=== PATIENT | female | born 1990 | race Caucasian/White ===

== ENCOUNTER 2016-12-07 04:15 | Emergency (ER) | payer MEDICAID, OTHER ==
[~2016-12-07] VITALS: Ht 165.1 cm; Wt 53.0 kg
[~2016-12-07 04:15] MED LIST: PROT40TA PO; ZOFR4TAB3 SL
[2016-12-07 04:18] VITALS: BP 132/91; PULSE 91; RESP 16; TEMP 97.3; O2SAT 100
[2016-12-07 05:24] VITALS: BP 131/86; PULSE 79; RESP 18; O2SAT 96
--- NOTE | 2016-12-07 05:49 | PD ---
HPI Chief Complaint: GI Complaint Time Seen by Provider: 05:49 Travel History International Travel<30 days: No Contact w/Intl Traveler<30days: No Traveled to known affect area: No History of Present Illness HPI 26-year-old female came to the emergency room with history of vomiting, abdominal pain for past 2 days. Patient says that she has vomited multiple times. She had something very similar few months ago and was admitted in [place]. CAT scan and extensive workup was done and everything came back negative. Patient has history of "abdominal nerves" and her anything that makes her anxious makes her nauseous as well. She looks anxious and in moderate distress. REPLACED BY [facility] Past Medical History Narrative Medical List of her past medical history is reviewed from the nursing note. Autoimmune Disease: No Cancer: No Cardiovascular Problems: No Chemotherapy: No Diminished Hearing: No Endocrine: No Gastrointestinal Disorders: Yes GERD: Yes Genitourinary: No Immune Disorder: No Musculoskeletal: No Neurologic: No Psychiatric: No Reproductive: No Respiratory: No Radiation Therapy: No Ulcer: Yes Tetanus Vaccination: > 5 Years Influenza Vaccination: No ?: Not LMP: 11/08/16 Past Surgical History Other Surgery: Yes (WISDOM TEETH REMOVED) Social History Alcohol Use: No Tobacco Use: Yes (1 PPD) Substance Use: Yes (MARIJUANA-HEAVILY) Allergies-Medications (Allergen,Severity, Reaction): Coded Allergies: No Known Allergies (Verified , 12/07/16) Comments No known drug allergies. Reported Meds & Prescriptions Reported Meds & Active Scripts Active Protonix (Pantoprazole Sodium) 40 Mg Tab 40 Mg PO DAILY Zofran Odt (Ondansetron Odt) 4 Mg Tab 4 Mg SL Q6HR PRN Narrative Medication List of her home medications reviewed from the nursing note. Review of Systems Except as stated in HPI: all other systems reviewed are Neg Physical Exam Narrative GENERAL: Awake, alert, anxious, moderate distress SKIN: Warm and dry. HEAD: Atraumatic. Normocephalic. EYES: Pupils equal and round. No scleral icterus. No injection or drainage. ENT: No nasal bleeding or discharge. Dry mucous membrane NECK: Trachea midline. No JVD. CARDIOVASCULAR: Regular rate and rhythm. No murmur appreciated. RESPIRATORY: No accessory muscle use. Clear to auscultation. Breath sounds equal bilaterally. GASTROINTESTINAL: Abdomen soft, generalized tenderness on deep palpation, nondistended. Hepatic and splenic margins not palpable. MUSCULOSKELETAL: No obvious deformities. No clubbing. No cyanosis. No edema. NEUROLOGICAL: Awake and alert. No obvious cranial nerve deficits. Motor grossly within normal limits. Normal speech. PSYCHIATRIC: Appropriate mood and affect; insight and judgment normal. Data Data Last Documented VS Vital Signs Date Time Temp Pulse Resp B/P Pulse Ox O2 Delivery O2 Flow Rate FiO2 12/07/16 07:43 99.3 118 17 123/81 98 Room Air Orders Complete Blood Count With Diff (12/07/16 05:52) Comprehensive Metabolic Panel (12/07/16 05:52) Lipase (12/07/16 05:52) Urinalysis - C+S If Indicated (12/07/16 05:52) Iv Access Insert/Monitor (12/07/16 05:52) Ecg Monitoring (12/07/16 05:52) Oximetry (12/07/16 05:52) Ondansetron Inj (Zofran Inj) (12/07/16 06:00) Pantoprazole Inj (Protonix Inj) (12/07/16 06:00) Sodium Chlor 0.9% 1000 Ml Inj (Ns 1000 M (12/07/16 05:52) Sodium Chloride 0.9% Flush (Ns Flush) (12/07/16 06:00) Sodium Chlor 0.9% 1000 Ml Inj (Ns 1000 M (12/07/16 07:30) Sodium Chlor 0.9% 1000 Ml Inj (Ns 1000 M (12/07/16 07:45) Urine Culture (12/07/16 07:55) Labs Laboratory Tests Test 12/07/16 12/07/16 06:10 07:55 White Blood Count 15.2 TH/MM3 Red Blood Count 4.65 MIL/MM3 Hemoglobin 13.9 GM/DL Hematocrit 40.8 % Mean Corpuscular Volume 87.9 FL Mean Corpuscular Hemoglobin 29.8 PG Mean Corpuscular Hemoglobin 34.0 % Concent Red Cell Distribution Width 13.7 % Platelet Count 217 TH/MM3 Mean Platelet Volume 12.0 FL Neutrophils (%) (Auto) 75.6 % Lymphocytes (%) (Auto) 16.7 % Monocytes (%) (Auto) 7.0 % Eosinophils (%) (Auto) 0.1 % Basophils (%) (Auto) 0.6 % Neutrophils # (Auto) 11.5 TH/MM3 Lymphocytes # (Auto) 2.5 TH/MM3 Monocytes # (Auto) 1.1 TH/MM3 Eosinophils # (Auto) 0.0 TH/MM3 Basophils # (Auto) 0.1 TH/MM3 CBC Comment DIFF FINAL Differential Comment Sodium Level 136 MEQ/L Potassium Level 4.1 MEQ/L Chloride Level 104 MEQ/L Carbon Dioxide Level 23.8 MEQ/L Anion Gap 8 MEQ/L Blood Urea Nitrogen 11 MG/DL Creatinine 0.91 MG/DL Estimat Glomerular Filtration 75 ML/MIN Rate Random Glucose 90 MG/DL Calcium Level 8.9 MG/DL Total Bilirubin 1.2 MG/DL Aspartate Amino Transf 29 U/L (AST/SGOT) Alanine Aminotransferase 22 U/L (ALT/SGPT) Alkaline Phosphatase 54 U/L Total Protein 7.3 GM/DL Albumin 4.0 GM/DL Lipase 108 U/L Urine Color YELLOW Urine Turbidity HAZY Urine pH 6.5 Urine Specific [place] 1.024 Urine Protein TRACE mg/dL Urine Glucose (UA) NEG mg/dL Urine Ketones 40 mg/dL Urine Occult Blood NEG Urine Nitrite NEG Urine Bilirubin NEG Urine Urobilinogen 2.0 MG/DL Urine Leukocyte Esterase NEG Urine RBC 1 /hpf Urine WBC 1 /hpf Urine Squamous Epithelial 10 /hpf Cells Urine Bacteria MOD /hpf Urine Mucus FEW /lpf Microscopic Urinalysis Comment CULTURE INDICATED MDM Medical Decision Making Medical Screen Exam Complete: Yes Emergency Medical Condition: Yes Medical Record Reviewed: Yes Differential Diagnosis Acute appendicitis, gastroenteritis, acute gastritis, abdominal pain NOS Narrative Course 7:24 AM blood test results of back and patient has leukocytosis. Chemistry looks to be within normal limit. She was given IV fluid bolus, Zofran and IV Protonix. Patient says she feels much better. She has not vomited anymore. I palpated her abdomen and she said her tenderness is better. Patient will get a second liter of IV fluid bolus. She still has to give a urine sample for urinalysis. Patient will be discharged home after that. Procedures EKG Prior to Arrival: No Diagnosis Primary Impression: Acute gastritis Qualified Code: K29.00 - Acute gastritis without hemorrhage, unspecified gastritis type Additional Impressions: Abdominal pain Qualified Code: R10.84 - Generalized abdominal pain Dehydration Referrals: Primary Care Physician 3 days Additional Instructions: Please return to the ER if the condition worsens or any other new concerns. Otherwise follow-up with your primary care in couple days. Take the medications as per the prescription direction. Med/Other Pt SpecificInfo: Prescription(s) given Scripts Pantoprazole (Protonix)40 Mg Tab40 Mg PO DAILY #30 TAB Ref 0 Prov:Kemi Coelho MD 12/07/16 Ondansetron Odt (Zofran Odt)4 Mg Tab4 Mg SL Q6HR PRN (Nausea/Vomiting) #30 TAB Ref 0 Prov:Kemi Coelho MD 12/07/16 Disposition: DISCHARGE HOME Condition: Stable Kemi Coelho MD Dec 07, 2016 05:49
[2016-12-07] MEDS ORDERED: SODIUM CHLOR 0.9% 1000 ML INJ 1,000 ML IV SCH (05:52)
[2016-12-07] MEDS ORDERED: ONDANSETRON HCL 4 MG/2 ML VIAL IVP ONE (06:00)
[2016-12-07] MEDS ORDERED: PANTOPRAZOLE SODIUM 40 MG VIAL IVP ONE (06:00)
[2016-12-07] MEDS ORDERED: SODIUM CHLORIDE 0.9% FLUSH 5 ML FLUSH IVF PRN (06:00)
[2016-12-07 06:14] VITALS: O2SAT 99
[2016-12-07 06:30] LABS: AUTOMATED NEUTROPHIL # 11.5 TH/MM3 (1.8-7.7); BASOPHIL # 0.1 TH/MM3 (0-0.2); BASOPHIL % 0.6 % (0.0-2.0); EOSINOPHIL % 0.1 % (0.0-4.0); HEMATOCRIT 40.8 % (35.0-46.0); HEMO FLAGS DIFF FINAL; LYMPH % 16.7 % (9.0-44.0); LYMPHOCYTE # 2.5 TH/MM3 (1.0-4.8); MEAN CELL VOLUME 87.9 FL (80.0-100.0); MEAN CORPUSCULAR HEMOGLOBIN 29.8 PG (27.0-34.0); NEUT % 75.6 % (16.0-70.0); PLATELET COUNT 217 TH/MM3 (150-450); RED BLOOD COUNT 4.65 MIL/MM3 (4.00-5.30); RED CELL DISTRIBUTION WIDTH 13.7 % (11.6-17.2); WHITE BLOOD COUNT 15.2 TH/MM3 (4.0-11.0)
[2016-12-07 06:52] LABS: ALKALINE PHOSPHATASE 54 U/L (45-117); TOTAL BILIRUBIN ADULT 1.2 MG/DL (0.2-1.0)
[2016-12-07 06:54] LABS: ALT (GPT) 22 U/L (10-53); ANION GAP 8 MEQ/L (5-15); AST (GOT) 29 U/L (15-37); BICARBONATE 23.8 MEQ/L (21.0-32.0); BLOOD UREA NITROGEN 11 MG/DL (7-18); CHLORIDE 104 MEQ/L (98-107); GLOMERULAR FILTRATION RATE 75 ML/MIN (>89); POTASSIUM 4.1 MEQ/L (3.5-5.1); SODIUM (NA) 136 MEQ/L (136-145)
[2016-12-07] MEDS ORDERED: PROT40TA PO (07:28)
[2016-12-07] MEDS ORDERED: ZOFR4TAB3 SL (07:28)
[2016-12-07] MEDS ORDERED: SODIUM CHLOR 0.9% 1000 ML INJ 1,000 ML IV ONE ×2 (07:30→07:45)
[2016-12-07 07:43] VITALS: BP 123/81; PULSE 118; RESP 17; TEMP 99.3; O2SAT 98
[2016-12-07 08:24] LABS: BACTERIA, URINE MOD /hpf; BLOOD, URINE NEG (NEG); COMMENT (UR) CULTURE INDICATED; CULTURE IF INDICATED CULTURE INDICATED; GLUCOSE,URINE NEG (NEG); KETONE, URINE 40 mg/dL (NEG); MUCUS URINE FEW /lpf (OCC); NITRITE,URINE NEG (NEG); PH, URINE 6.5 (5.0-8.5); SQUAMOUS EPITHELIAL CELL URINE 10 /hpf (0-5); URINE COLOR YELLOW (YELLW/STRAW)
== END 2016-12-07 09:23 | disposition home or self-care (01) ==
LOC: NEPE 04:15
DX: K29.00 Acute gastritis without bleeding (principal); R10.84 Generalized abdominal pain; E86.0 Dehydration; F17.210 Nicotine dependence, cigarettes, uncomplicated
CPT/HCPCS: 80053; 81001; 83690; 85025; 87086; 96361; 96374; 96375; 99284; C9113; J2405; J7030

== ENCOUNTER 2016-12-11 16:07 | Emergency (ER) | payer MEDICAID, OTHER ==
[~2016-12-11] VITALS: Ht 165.1 cm; Wt 53.9 kg
[2016-12-11 16:19] VITALS: BP 145/93; PULSE 91; RESP 16; TEMP 97.6; O2SAT 100
[2016-12-11] MEDS ORDERED: ZOLO50TA PO (16:42)
[2016-12-11] MEDS ORDERED: SODIUM CHLOR 0.9% 1000 ML INJ 1,000 ML IV SCH (16:58)
[2016-12-11] MEDS ORDERED: KETOROLAC TROMETHAMINE 30 MG/ML (IVP) VIAL IV PUSH ONE (17:00)
[2016-12-11] MEDS ORDERED: ONDANSETRON HCL 4 MG/2 ML VIAL IVP ONE (17:00)
[2016-12-11] MEDS ORDERED: SODIUM CHLORIDE 0.9% FLUSH 5 ML FLUSH IVF PRN (17:00)
[2016-12-11] MEDS ORDERED: SODIUM CHLOR 0.9% 1000 ML INJ 1,000 ML IV ONE (17:00)
[2016-12-11 17:22] LABS: AUTOMATED NEUTROPHIL # 13.7 TH/MM3 (1.8-7.7); BASOPHIL # 0.2 TH/MM3 (0-0.2); BASOPHIL % 1.2 % (0.0-2.0); EOSINOPHIL # 0.2 TH/MM3 (0-0.4); EOSINOPHIL % 1.3 % (0.0-4.0); HEMATOCRIT 44.8 % (35.0-46.0); HEMO FLAGS DIFF FINAL; LYMPH % 8.5 % (9.0-44.0); LYMPHOCYTE # 1.3 TH/MM3 (1.0-4.8); MEAN CELL VOLUME 89.3 FL (80.0-100.0); MEAN CORPUSCULAR HEMOGLOBIN 29.2 PG (27.0-34.0); MEAN CORPUSCULAR HGB CONC 32.7 % (32.0-36.0); MONO % 2.9 % (0.0-8.0); NEUT % 86.1 % (16.0-70.0); PLATELET COUNT 276 TH/MM3 (150-450); RED BLOOD COUNT 5.02 MIL/MM3 (4.00-5.30); RED CELL DISTRIBUTION WIDTH 13.5 % (11.6-17.2); WHITE BLOOD COUNT 15.9 TH/MM3 (4.0-11.0)
[2016-12-11 17:25] VITALS: BP 138/84; PULSE 64; RESP 18; O2SAT 100
[2016-12-11 17:31] LABS: CHLORIDE 109 MEQ/L (98-107); POTASSIUM 3.7 MEQ/L (3.5-5.1); SODIUM (NA) 142 MEQ/L (136-145)
[2016-12-11 17:35] LABS: ANION GAP 11 MEQ/L (5-15); BICARBONATE 21.7 MEQ/L (21.0-32.0); BLOOD UREA NITROGEN 7 MG/DL (7-18)
[2016-12-11 17:38] LABS: ALT (GPT) 17 U/L (10-53); AST (GOT) 8 U/L (15-37); GLOMERULAR FILTRATION RATE 73 ML/MIN (>89)
[2016-12-11 17:39] LABS: TOTAL BILIRUBIN ADULT 0.9 MG/DL (0.2-1.0)
[2016-12-11 17:41] LABS: ALKALINE PHOSPHATASE 60 U/L (45-117)
[2016-12-11] MEDS ORDERED: IOHEXOL 350 MG/ML 10 ML VIAL (for RAD DIAG) IV ONE (18:12)
[2016-12-11 18:25] VITALS: RESP 16
--- NOTE | 2016-12-11 18:33 | RADHPO ---
EXAM DATE/TIME: 12/11/2016 18:06 [place] COMPARISON: CT ABDOMEN W/O CONTRAST, August 19, 2016, 10:58. INDICATIONS : Abdominal pain and vomiting for five days. IV CONTRAST: 75 cc Omnipaque 350 (iohexol) IV ORAL CONTRAST: No oral contrast ingested. RADIATION DOSE: 5.32 CTDIvol (mGy) MEDICAL HISTORY : Gastroesophageal reflux disease. SURGICAL HISTORY : None. ENCOUNTER: Initial ACUITY: 4 - 6 days PAIN SCALE: 6/10 LOCATION: Bilateral Abdomen. TECHNIQUE: Volumetric scanning of the abdomen and pelvis was performed. Using automated exposure control and ad justment of the mA and/or kV according to patient size, radiation dose was kept as low as reasonably achievable to obtain optimal diagnostic quality images. FINDINGS: LOWER LUNGS: The visualized lower lungs are clear. LIVER: Homogeneous density without lesion. There is no dilation of the biliary tree. No calcified gallston es. SPLEEN: Normal size. Small cyst, stable PANCREAS: Within normal limits. KIDNEYS: Normal in size and shape. There is no mass, stone or hydronephrosis. ADRENAL GLANDS: Within normal limits. VASCULAR: There is no aortic aneurysm. BOWEL/MESENTERY: The stomach, small bowel, and colon demonstrate no acute abnormality. There is no free intraperitone al air or fluid. ABDOMINAL WALL: Within normal limits. RETROPERITONEUM: There is no lymphadenopathy. BLADDER: No wall thickening or mass. REPRODUCTIVE: Within normal limits. INGUINAL: There is no lymphadenopathy or hernia. MUSCULOSKELETAL: Within normal limits for patient age. CONCLUSION: 1. No acute findings. Tiny splenic and left renal cyst, stable from August 2016. Chung Spicer MD on December 11, 2016 at 18:28 Board Certified Radiologist. This report was verified electronically.
[2016-12-11 18:59] LABS: BLOOD, URINE NEG (NEG); GLUCOSE,URINE NEG (NEG); KETONE, URINE NEG (NEG); NITRITE,URINE NEG (NEG); PH, URINE 7.5 (5.0-8.5); URINE COLOR YELLOW (YELLW/STRAW)
[2016-12-11 19:00] LABS: BACTERIA, URINE FEW /hpf; COMMENT (UR) CULT NOT INDICATED; SQUAMOUS EPITHELIAL CELL URINE 0-5 /hpf (0-5)
[2016-12-11] MEDS ORDERED: PROM25TA5 PO (19:03)
--- NOTE | 2016-12-11 19:03 | PD ---
HPI Chief Complaint: GI Complaint Time Seen by Provider: 16:58 Travel History International Travel<30 days: No Contact w/Intl Traveler<30days: No Traveled to known affect area: No History of Present Illness HPI Patient is 26 year old female presents with n/v and dehydration. patient states could not afford the zofran she was prescribed when she went home on 2016. She has been admitted for intractible nausea before. Denies fevers. Denies abdominal pain. Patient states not been able to tolerate liquids for past 5 days and tried smoking pot last night without relief. Accompanied by her . PFSH Past Medical History Autoimmune Disease: No Anxiety: Yes Cancer: No Cardiovascular Problems: No Chemotherapy: No Diminished Hearing: No Endocrine: No Gastrointestinal Disorders: Yes (Recurrent N/V) GERD: Yes Genitourinary: No Immune Disorder: No Musculoskeletal: No Neurologic: No Psychiatric: No Reproductive: No Respiratory: No Radiation Therapy: No Ulcer: Yes Tetanus Vaccination: > 5 Years Influenza Vaccination: No ?: Not LMP: 11/13/16 Past Surgical History Other Surgery: Yes (WISDOM TEETH REMOVED) Social History Alcohol Use: No Tobacco Use: Yes (1 PPD) Substance Use: Yes (Marijuana occ.) Allergies-Medications (Allergen,Severity, Reaction): Coded Allergies: No Known Allergies (Verified , 12/11/16) Reported Meds & Prescriptions Reported Meds & Active Scripts Active Phenergan (Promethazine HCl) 25 Mg Tab 25 Mg PO Q6H PRN Reported Zoloft (Sertraline HCl) 50 Mg Tab 50 Mg PO DAILY Review of Systems Except as stated in HPI: all other systems reviewed are Neg Physical Exam Narrative GENERAL: WD/WN in nad. SKIN: Warm and dry. HEAD: Atraumatic. Normocephalic. EYES: Pupils equal and round. No scleral icterus. No injection or drainage. ENT: No nasal bleeding or discharge. Mucous membranes pink and moist. NECK: Trachea midline. No JVD. CARDIOVASCULAR: Regular rate and rhythm. RESPIRATORY: No accessory muscle use. Clear to auscultation. Breath sounds equal bilaterally. GASTROINTESTINAL: Abdomen soft, non-tender, nondistended. Hepatic and splenic margins not palpable. MUSCULOSKELETAL: Extremities without clubbing, cyanosis, or edema. No obvious deformities. NEUROLOGICAL: Awake and alert. No obvious cranial nerve deficits. Motor grossly within normal limits. Five out of 5 muscle strength in the arms and legs. Normal speech. PSYCHIATRIC: Appropriate mood and affect; insight and judgment normal. Data Data Last Documented VS Vital Signs Date Time Temp Pulse Resp B/P Pulse Ox O2 Delivery O2 Flow Rate FiO2 12/11/16 19:37 92 18 116/82 99 12/11/16 17:25 Room Air 12/11/16 16:19 97.6 Orders Complete Blood Count With Diff (12/11/16 16:58) Comprehensive Metabolic Panel (12/11/16 16:58) Ct Abd/Pel W Iv Contrast(Rout) (12/11/16 16:58) Iv Access Insert/Monitor (12/11/16 16:58) Ecg Monitoring (12/11/16 16:58) Oximetry (12/11/16 16:58) Ondansetron Inj (Zofran Inj) (12/11/16 17:00) Sodium Chlor 0.9% 1000 Ml Inj (Ns 1000 M (12/11/16 16:58) Sodium Chloride 0.9% Flush (Ns Flush) (12/11/16 17:00) Sodium Chlor 0.9% 1000 Ml Inj (Ns 1000 M (12/11/16 17:00) Ketorolac Inj (Toradol Inj) (12/11/16 17:00) Lipase (12/11/16 17:57) Iohexol 350 Inj (Omnipaque 350 Inj) (12/11/16 18:12) Ua Includes Microscopic (12/11/16 18:27) Ed Urine Pregnancytest Poc (12/11/16 18:27) Labs Laboratory Tests Test 12/11/16 12/11/16 17:15 18:34 White Blood Count 15.9 TH/MM3 Red Blood Count 5.02 MIL/MM3 Hemoglobin 14.6 GM/DL Hematocrit 44.8 % Mean Corpuscular Volume 89.3 FL Mean Corpuscular Hemoglobin 29.2 PG Mean Corpuscular Hemoglobin 32.7 % Concent Red Cell Distribution Width 13.5 % Platelet Count 276 TH/MM3 Mean Platelet Volume 11.4 FL Neutrophils (%) (Auto) 86.1 % Lymphocytes (%) (Auto) 8.5 % Monocytes (%) (Auto) 2.9 % Eosinophils (%) (Auto) 1.3 % Basophils (%) (Auto) 1.2 % Neutrophils # (Auto) 13.7 TH/MM3 Lymphocytes # (Auto) 1.3 TH/MM3 Monocytes # (Auto) 0.5 TH/MM3 Eosinophils # (Auto) 0.2 TH/MM3 Basophils # (Auto) 0.2 TH/MM3 CBC Comment DIFF FINAL Differential Comment Sodium Level 142 MEQ/L Potassium Level 3.7 MEQ/L Chloride Level 109 MEQ/L Carbon Dioxide Level 21.7 MEQ/L Anion Gap 11 MEQ/L Blood Urea Nitrogen 7 MG/DL Creatinine 0.93 MG/DL Estimat Glomerular Filtration 73 ML/MIN Rate Random Glucose 113 MG/DL Calcium Level 9.0 MG/DL Total Bilirubin 0.9 MG/DL Aspartate Amino Transf 8 U/L (AST/SGOT) Alanine Aminotransferase 17 U/L (ALT/SGPT) Alkaline Phosphatase 60 U/L Total Protein 7.7 GM/DL Albumin 4.2 GM/DL Lipase 119 U/L Urine Color YELLOW Urine Turbidity CLEAR Urine pH 7.5 Urine Specific [place] 1.034 Urine Protein NEG mg/dL Urine Glucose (UA) NEG mg/dL Urine Ketones NEG mg/dL Urine Occult Blood NEG Urine Nitrite NEG Urine Bilirubin NEGATIVE Urine Squamous Epithelial 0-5 /hpf Cells Urine Bacteria FEW /hpf Microscopic Urinalysis Comment CULT NOT INDICATED MDM Medical Decision Making Medical Screen Exam Complete: Yes Emergency Medical Condition: Yes Differential Diagnosis Abdominal pain, cyclical vomiting syndrome, gastritis, gastroenteritis, dehydration, pancreatitis, etc/ Narrative Course Patient roomed in ED. Given 2L NS, urine output in ED. Labs reassuring but WBC remaining elevated to [address] scan negative. Feeling much better after IV zofran, wishes to go home. Will switch to phenergan. She is stable for discharge. Discussed need for follow up with a PCP and return to ED criteria. Diagnosis Primary Impression: Nausea & vomiting Qualified Code: R11.2 - Non-intractable vomiting with nausea, unspecified vomiting type Med/Other Pt SpecificInfo: Prescription(s) given Scripts Promethazine (Phenergan)25 Mg Tab25 Mg PO Q6H PRN (Nausea/Vomiting) #20 TAB Ref 0 Prov:Leland Romero MD 12/11/16 Disposition: 01 DISCHARGE HOME Condition: Stable Leland Romero MD Dec 11, 2016 19:03
[2016-12-11 19:37] VITALS: BP 116/82
== END 2016-12-11 19:39 | disposition home or self-care (01) ==
LOC: PHED 16:07
DX: R11.2 Nausea with vomiting, unspecified (principal)
CPT/HCPCS: 74177; 80053; 81001; 83690; 84703; 85025; 96361; 96374; 96375; 99284; J1885; J2405; J7030; Q9967

== ENCOUNTER 2017-08-18 16:05 | Emergency (ER) | payer SELFPAY ==
[~2017-08-18] VITALS: Ht 162.6 cm; Wt 59.0 kg
[~2017-08-18 16:05] MED LIST changes: +PROM25TA5 PO; -PROT40TA PO; -ZOFR4TAB3 SL; +ZOLO50TA PO
[2017-08-18 16:14] VITALS: BP 98/58; PULSE 101; RESP 16; TEMP 98.3; O2SAT 98
--- NOTE | 2017-08-18 18:09 | PD ---
HPI Chief Complaint: Lump, Cyst, Hernia Time Seen by Provider: 17:26 Travel History International Travel<30 days: No Contact w/Intl Traveler<30days: No Traveled to known affect area: No History of Present Illness HPI 26-year-old female presents to the emergency room for evaluation of bilateral, painful lumps to her groin that she first noticed 2 weeks ago. It started on the left as a small lump that has been growing and has since gone to the right. The right is not as large or painful. She has not taken anything for pain. Patient denies dysuria, urgency, frequency, pelvic pain, vaginal discharge, dyspareunia, fever, chills, nausea, vomiting, and malaise. Patient denies possibility of , she does not have sex with men. States she would not be surprised if she got an STD from her ex-. No chronic medical conditions or daily medications. PFSH Past Medical History Hx Anticoagulant Therapy: No Autoimmune Disease: No Anxiety: Yes Cancer: No Cardiovascular Problems: No Chemotherapy: No Diabetes: No Diminished Hearing: No Endocrine: No GERD: Yes Genitourinary: No Immune Disorder: No Musculoskeletal: No Neurologic: No Psychiatric: No Reproductive: No Respiratory: No Immunizations Current: No Radiation Therapy: No Ulcer: Yes Tetanus Vaccination: Unknown Influenza Vaccination: No ?: Not LMP: 3-4 mths Past Surgical History Other Surgery: Yes (WISDOM TEETH REMOVED) Social History Alcohol Use: No Tobacco Use: Yes (1 PPD) Substance Use: Yes (Marijuana occ.) Allergies-Medications (Allergen,Severity, Reaction): Coded Allergies: No Known Allergies (Verified , 08/18/17) Reported Meds & Prescriptions Reported Meds & Active Scripts Active Augmentin (Amoxicillin-Clavulanate) 875-125 Mg Tab 1 Tab PO BID 7 Days Review of Systems Except as stated in HPI: all other systems reviewed are Neg Physical Exam Narrative GENERAL: Well-nourished, well-developed female in no acute distress. Afebrile. Ambulatory. SKIN: Focused skin assessment warm/dry. No erythema or ecchymosis. HEAD: Normocephalic. EYES: No scleral icterus. No injection or drainage. NECK: Supple, trachea midline. No JVD or lymphadenopathy. CARDIOVASCULAR: Regular rate and rhythm without murmurs, gallops, or rubs. RESPIRATORY: Breath sounds equal bilaterally. No accessory muscle use. GENITOURINARY: Normal external genitalia without lesions or erythema. There are several inflamed, 1 cm, mobile, tender to palpation lymph nodes in bilateral groin. Data Data Last Documented VS Vital Signs Date Time Temp Pulse Resp B/P (MAP) Pulse Ox O2 Delivery O2 Flow Rate FiO2 08/18/17 16:14 98.3 101 16 98/58 (71) 98 Orders Orders Urinalysis - C+S If Indicated (08/18/17 18:07) Ed Discharge Order (08/18/17 19:14) Labs Laboratory Tests Test 08/18/17 18:30 Urine Color YELLOW Urine Turbidity SLIGHT Urine pH 5.5 Urine Specific [place] 1.019 Urine Protein NEG mg/dL Urine Glucose (UA) NEG mg/dL Urine Ketones NEG mg/dL Urine Occult Blood NEG Urine Nitrite NEG Urine Bilirubin NEG Urine Leukocyte Esterase NEG Urine WBC 0-2 /hpf Urine Squamous Epithelial Cells > 8 /hpf Urine Amorphous Sediment MOD Urine Bacteria OCC /hpf Urine Mucus OCC /lpf Microscopic Urinalysis Comment CULT NOT INDICATED MDM Medical Decision Making Medical Screen Exam Complete: Yes Emergency Medical Condition: Yes Medical Record Reviewed: Yes Differential Diagnosis Lymphadenopathy, STD, UTI Narrative Course 26-year-old female presents to the emergency room for evaluation of bilateral, painful groin lumps for the past 2 weeks. History and physical exam are consistent with inguinal lymphadenopathy. Patient denies any signs or symptoms of infection. She is resting comfortably. Vital signs stable. Abdomen soft, nontender. Physical exam reveals a couple tender, mobile, less than 1 cm lymph nodes to bilateral groin. UA shows no evidence of acute infection. Patient will be treated empirically with Augmentin. Told to follow-up with her primary care physician if symptoms persist for another 2 weeks for biopsy or return for worsening symptoms. She understands and agrees to plan. Patient left before instructions and did not receive prescription for Augmentin. Diagnosis Primary Impression: Inguinal lymphadenopathy Referrals: Primary Care Physician Additional Instructions: Rest and drink plenty of fluids. Augmentin as directed, until gone. Take ibuprofen with food as directed, as needed for pain. Follow-up with a primary care physician. Return to the emergency room for worsening symptoms. Scripts Amoxicillin-Clavulanate (Augmentin) 875-125 Mg Tab 1 TAB PO BID for Infection for 7 Days, #14 TAB 0 Refills Prov: Viel,Ricardo C. MD 08/18/17 Disposition: 01 DISCHARGE HOME Condition: Stable Rose Mary Martínez Aug 18, 2017 18:09
[2017-08-18 18:58] LABS: BLOOD, URINE NEG (NEG); GLUCOSE,URINE NEG (NEG); KETONE, URINE NEG (NEG); NITRITE,URINE NEG (NEG); PH, URINE 5.5 (5.0-8.5)
[2017-08-18 19:00] LABS: URINE COLOR YELLOW (YELLW/STRAW)
[2017-08-18 19:01] LABS: BACTERIA, URINE OCC /hpf; COMMENT (UR) CULT NOT INDICATED; CULTURE IF INDICATED CULT NOT INDICATED; MUCUS URINE OCC /lpf (OCC); SQUAMOUS EPITHELIAL CELL URINE > 8 /hpf (0-5)
[2017-08-18 19:02] LABS: WBC, URINE 0-2 /hpf (0-5)
[2017-08-18] MEDS ORDERED: AUGM875T3 PO (19:13)
== END 2017-08-18 19:22 | disposition home or self-care (01) ==
LOC: PHED 16:05
DX: R59.1 Generalized enlarged lymph nodes (principal); F41.9 Anxiety disorder, unspecified; K21.9 Gastro-esophageal reflux disease without esophagitis; F17.200 Nicotine dependence, unspecified, uncomplicated
CPT/HCPCS: 81001; 99283